=== PATIENT | male | born 1960 | race Two or more races ===

== ENCOUNTER 2018-04-23 10:51 | Emergency (ER) | payer MEDICAID ==
[~2018-04-23] VITALS: Ht 188 cm; Wt 100.7 kg
[~2018-04-23 10:51] MED LIST: NKM; NORCO 5-325 TA1 EACH ORAL
[2018-04-23 11:04] VITALS: BP 159/94
--- NOTE | 2018-04-23 11:53 | Emergency Room Report ---
History of Present Illness General Chief Complaint: Pain Source: Patient Present Illness HPI This patient has been bike riding to work a lot and c/o blister to right buttocks. No other issues/complaints. Wondering if he needs antibiotics. Allergies: Coded Allergies: No Known Allergies (Unverified , 04/08/14) Nursing Documentation-[facility] Past Medical History: No Stated History Hx Hypertension: Yes Review of Systems Constitutional: Reports: no symptoms Eye: Reports: no symptoms Cardiovascular: Reports: no symptoms Gastrointestinal: Reports: no symptoms Genitourinary: Reports: no symptoms All Other Systems: negative except mentioned in HPI Physical Exam Vital Signs Date Time Temp Pulse Resp B/P (MAP) Pulse Ox O2 Delivery O2 Flow Rate FiO2 04/23/18 10:56 97.9 71 18 159/94 96 Room Air General Appearance: well appearing, no apparent distress Head: normocephalic, atraumatic ENT: hearing grossly normal, normal voice Neck: full range of motion, supple Respiratory: no respiratory distress, speaking full sentences Musculoskeletal: other - there is a quarter size abrasion right medial buttock ; could be c/w blister having lost skin. no cellulitis Neurologic: alert, normal gait Psychiatric: mood/affect normal Skin: no rash Medical Decision Making Diagnostic Impression: Primary Impression: Abrasion Last Vital Signs Date Time Temp Pulse Resp B/P (MAP) Pulse Ox O2 Delivery O2 Flow Rate FiO2 04/23/18 11:04 97.9 78 18 159/94 96 Room Air Status: improved Disposition: HOME, SELF-CARE Patient Instructions: Abresha [id number]-Nodz Forest Mohamud M.D. Apr 23, 2018 11:53
[2018-04-23] MEDS ORDERED: Bacitracin Oint UD TOPIC ONE (12:00)
== END 2018-04-23 12:00 | disposition home or self-care (01) ==
LOC: EMR 11:50
DX: S30.810A Abrasion of lower back and pelvis, initial encounter (principal); X58.XXXA Exposure to other specified factors, initial encounter; Y92.9 Unspecified place or not applicable; I10 Essential (primary) hypertension
CPT/HCPCS: 99282